=== PATIENT | male | born 1960 | race Caucasian/White ===

== ENCOUNTER 2016-12-14 18:02 | Emergency (ER) | payer BC ==
--- NOTE | 2016-12-14 18:10 | ED.PDOC ---
History of Present Illness - General Chief Complaint: General Stated Complaint: fever /headache Time Seen by Provider: 12/14/16 18:09 Source: patient Exam Limitations: no limitations - History of Present Illness Initial Comments: Cody Puckett 56 y/o male stated that he had onset of frontal head ache non radiating since yesterday which had been constant felt nauseated ,w/photophobia and phonopsia.Stated had history of migraine headaches 20 years ago but it gradually got better.5 days ago had nausea vomiting and diarrhea which got better.Denies ill contact or outdoor camping Timing/Duration: 24 hours Severity: moderate Improving Factors: nothing Worsening Factors: nothing Associated Symptoms: other - see hpi Allergies/Adverse Reactions: Allergies NO KNOWN ALLERGY Allergy (Verified 12/14/16 18:18) Home Medications: Ambulatory Orders Aspirin [Goodsense Aspirin] 325 mg PO DAILY 12/09/13 Esomeprazole Magnesium [Nexium] 40 mg PO DAILY 12/09/13 Metoprolol Succinate [Toprol XL] 50 mg PO DAILY 12/09/13 Review of Systems - Review of Systems Constitutional: States: see HPI, fever EENTM: States: no symptoms reported Respiratory: States: no symptoms reported Cardiology: States: no symptoms reported Gastrointestinal/Abdominal: States: no symptoms reported Genitourinary: States: no symptoms reported Neurological: States: see HPI Endocrine: States: no symptoms reported Hematologic/Lymphatic: States: no symptoms reported Past Medical History (General) - Patient Medical History Hx Stroke: No Hx Congestive Heart Failure: No Hx Hypertension: Yes Hx Diabetes: No Surgical History: no surgical history - Social History Hx Tobacco Use: No Hx Chewing Tobacco Use: Yes Family Medical History - Family History Father Living Status: Hx Cardiac Disease: Yes Age of Onset (years of age): 80 Physical Exam - Physical Exam General Appearance: Alert, No apparent distress Eye Exam: bilateral normal Ears, Nose, Throat: hearing grossly normal, normal ENT inspection, normal pharynx Neck: non-tender, full range of motion, supple, other - no meningeal signs Respiratory: chest non-tender, lungs clear, normal breath sounds Cardiovascular/Chest: normal peripheral pulses, regular rate, rhythm, no murmur Peripheral Pulses: radial,right: 2+, radial,left: 2+ Gastrointestinal/Abdominal: normal bowel sounds, non tender, soft, no organomegaly Back Exam: no CVA tenderness, no vertebral tenderness Extremity: non-tender, normal inspection Neurologic: alert, normal mood/affect, oriented x 3 Skin Exam: normal color, warm/dry Lymphatic: no adenopathy Progress - Progress Progress: 12/14/16 21:37 Vital Signs - 8 hr 12/14/16 12/14/16 12/14/16 18:07 18:18 20:34 Temperature 102.0 F H 102.3 F H Pulse Rate [ 107 H 92 H pulse ox] Respiratory 20 20 18 Rate Blood Pressure 143/82 115/74 [Left Arm] O2 Sat by Pulse 96 Oximetry 12/14/16 20:36 Temperature 102.3 F H Pulse Rate [ pulse ox] Respiratory Rate Blood Pressure [Left Arm] O2 Sat by Pulse Oximetry flu swab-negative A/B Laboratory Tests 12/14/16 12/14/16 12/14/16 18:30 18:50 18:50 WBC 10.5 RBC 5.53 Hgb 16.1 Hct 46.3 MCV 83.9 MCH 29.2 MCHC 34.8 RDW 14.0 Plt Count 132 MPV 8.2 Absolute Neuts (auto) 8.30 H Absolute Lymphs (auto) 1.40 Absolute Monos (auto) 0.80 Absolute Eos (auto) 0.00 Absolute Basos (auto) 0.00 Neutrophils % 78.5 H Lymphocytes % 13.4 L Monocytes % 7.3 Eosinophils % 0.5 L Basophils % 0.3 Sodium 130 L Potassium 4.0 Chloride 98 L Carbon Dioxide 24 Anion Gap 12.0 BUN 14 Creatinine 1.10 BUN/Creatinine Ratio 12.7 Random Glucose 110 H Serum Osmolality 261.9 L Calcium 8.6 Total Bilirubin 1.3 H AST 35 ALT 41 Alkaline Phosphatase 61 Serum Total Protein 7.5 Albumin 4.1 Globulin 3.4 Albumin/Globulin Ratio 1.2 Lipase 23 Urine Color Yellow Urine Appearance Clear Urine pH 5.5 Ur Specific [place] 1.025 Urine Protein Negative Urine Glucose (UA) Negative Urine Ketones Negative Urine Blood Small H Urine Nitrite Negative Urine Bilirubin Negative Urine Urobilinogen 0.2 Ur Leukocyte Esterase Negative Urine RBC 1-3 Urine WBC 0-1 Ur Epithelial Cells 0 Amorphous Sediment Trace Urine Bacteria Rare Urine Mucus Small - Results/Orders Results/Orders: Discuss blood test result and head ct findings with patient;initially told patient that if white count is elevated need to do spinal tap but turned out white blood result is within normal range Departure - Departure Clinical Impression: Hyponatremia, Viral illness Headache Qualifiers: Headache type: unspecified Headache chronicity pattern: unspecified pattern Intractability: not intractable Qualified Code(s): R51 - Headache Fever Qualifiers: Fever type: unspecified Qualified Code(s): R50.9 - Fever, unspecified Time of Disposition: 21:49 Disposition: Discharge to Home or Self Care Departure Forms: ED Discharge - Pt. Copy, Patient Portal Self Enrollment Instructions: DI for Headache Referrals: Barry Zepeda MD [Primary Care Provider] - 1-2 Weeks Home Medications: Ambulatory Orders Aspirin [Goodsense Aspirin] 325 mg PO DAILY 12/09/13 Esomeprazole Magnesium [Nexium] 40 mg PO DAILY 12/09/13 Metoprolol Succinate [Toprol XL] 50 mg PO DAILY 12/09/13 Additional Instructions: FOLLOW UP with primary md in AM 12/15/2016 call for appointment;Return to emergency room as needed
[2016-12-14 18:25] VITALS: O2SAT 96
[2016-12-14] MEDS ORDERED: LACTATED RINGERS 1,000 ML IVS ONE (19:10)
--- NOTE | 2016-12-14 20:23 | CT ---
EXAM DATE: 12/14/2016 7:26 PM CDT. PROCEDURE: CT HEAD WITHOUT IV CONTRAST. INDICATION: HEADACHE / FEVER. COMPARISON: CT head 2009 TECHNIQUE: Axial CT images of the head were acquired without intravenous contrast. This exam was performed according to our departmental dose-optimization program which includes use of Automated Exposure Control, adjustment of the mA and/or kV according to patient size and/or use of iterative reconstruction technique. FINDINGS: No acute intracranial hemorrhage. Randall white matter differentiation is preserved. No mass effect or midline shift. There is ventriculomegaly involving the lateral third ventricles with relative sparing of the fourth ventricle. Unremarkable orbits. Partial opacification of several ethmoid air cells. Mastoid air cells are clear. Intact calvarium. IMPRESSION: No acute intracranial abnormality. Ventriculomegaly of the lateral and third ventricles with relative sparing of the fourth ventricle stable since 2009. 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 Electronically signed by: Kyle Gudino MD 12/14/2016 8:22 PM CDT
[2016-12-14] MEDS ORDERED: HYDROCOD/APAP 10/325 (ER DISP) # 3 tablets PO ONE (21:42)
[2016-12-14] MEDS ORDERED: MORPHINE SULFATE INJ 10 MG/ML VIAL IV ONE (21:43)
[2016-12-14] MEDS ORDERED: PROMETHAZINE HCL INJ 25 MG/ML VIAL IM ONE (21:43)
[2016-12-14] MEDS ORDERED: ACETAMINOPHEN 500 MG TAB PO ONE (21:44)
[2016-12-14 22:11] VITALS: BP 122/78; TEMP 101.8
== END 2016-12-14 22:10 | disposition home or self-care (01) ==
LOC: ER 18:02
DX: E87.1 Hypo-osmolality and hyponatremia (principal); R51 Headache; B34.9 Viral infection, unspecified; I10 Essential (primary) hypertension; Z79.82 Long term (current) use of aspirin
CPT/HCPCS: 36415; 70450; 80053; 81001; 83690; 85025; 86788; 86789; 87502; 93005; J2270; J2550; J7120

== ENCOUNTER 2017-04-24 07:32 | Emergency (ER) | payer BC ==
[2017-04-24] MEDS ORDERED: ONDANSETRON INJ 4 MG/2 ML VIAL IV ONE (07:54)
[2017-04-24] MEDS ORDERED: SODIUM CHLORIDE 0.9% 1000ML 1,000 ML IVS ONE (07:54)
--- NOTE | 2017-04-24 07:57 | ED.PDOC ---
History of Present Illness - General Chief Complaint: Fever Stated Complaint: Fever, H/A, vomiting, cough Time Seen by Provider: 04/24/17 07:47 Source: patient, RN notes reviewed, Vital Signs reviewed - History of Present Illness Initial Comments: ONSET ABOUT THREE DAYS AGO, FEVER, MALAISE, VOMITING , DIARRHEA AND A PRODUCTIVE COUGH. 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 Associated Symptoms: cough, headache, muscle aches, nausea/vomiting, shortness of breath, sore throat Review of Systems - Review of Systems Constitutional: States: fever, malaise, weakness EENTM: States: nose congestion, throat pain Respiratory: States: cough, short of breath Cardiology: States: palpitations Gastrointestinal/Abdominal: States: abdominal pain, diarrhea, nausea, vomiting Genitourinary: States: no symptoms reported Musculoskeletal: States: joint swelling, muscle pain Skin: States: no symptoms reported Neurological: States: anxiety, headache Endocrine: States: no symptoms reported Hematologic/Lymphatic: States: no symptoms reported All other Systems: Reviewed and Negative Past Medical History (General) - Patient Medical History Hx Stroke: No Hx Congestive Heart Failure: No Hx Hypertension: Yes Hx Diabetes: No Hx Gastroesophageal Reflux: Yes Hx Renal Disease: Yes Surgical History: other - Vaccination History Hx Influenza Vaccination: Yes - 2017 Hx Pneumococcal Vaccination: No - Social History Hx Tobacco Use: No Hx Chewing Tobacco Use: Yes Hx Alcohol Use: No Hx Substance Use: No Hx Substance Use Treatment: No Hx Depression: No Family Medical History - Family History Father Living Status: Hx Cardiac Disease: Yes Age of Onset (years of age): 80 Physical Exam - Physical Exam General Appearance: Alert, Ill Appearing, Well Developed, Well Groomed, Well Nourished Eye Exam: bilateral normal ENT Exam: pharynx normal, nasal congestion, other - ORAL MUCOSA IS DRY Neck: non-tender, full range of motion, supple Respiratory: normal breath sounds, decreased breath sounds, rhonchi Cardiovascular/Chest: normal peripheral pulses, regular rate, rhythm, no edema, no gallop, no JVD, no murmur Gastrointestinal/Abdominal: normal bowel sounds, non tender, soft, no organomegaly, no pulsatile mass Extremity: normal range of motion, non-tender Neurologic: no motor/sensory deficits, normal mood/affect, oriented x 3 Skin Exam: normal color Lymphatic: no adenopathy Progress - Results/Orders Results/Orders: LAB AND X-RAYS ARE REPORTED. CXR WITH A LLL PNEUMONIA. Departure - Departure Clinical Impression: Pneumonia Qualifiers: Pneumonia type: due to unspecified organism Laterality: left Lung location: lower lobe of lung Qualified Code(s): J18.1 - Lobar pneumonia, unspecified organism Time of Disposition: 09:40 Disposition: Discharge to Home or Self Care Condition: Good Departure Forms: ED Discharge - Pt. Copy, Patient Portal Self Enrollment Instructions: Pneumonia-Adult Diet: resume usual diet Activity: increase activity as tolerated Referrals: Barry Zepeda MD [Primary Care Provider] - 1-2 Weeks Prescriptions: Benzonatate Perles [Tessalon Perles] 200 mg PO Q8HRS #15 cap levoFLOXacin 500MG IV [Levaquin 500MG IV] 500 mg IVPB DAILY #10 bag Home Medications: Ambulatory Orders Aspirin [Goodsense Aspirin] 325 mg PO DAILY 12/09/13 Esomeprazole Magnesium [Nexium] 40 mg PO DAILY 12/09/13 Metoprolol Succinate [Toprol XL] 50 mg PO DAILY 12/09/13 Benzonatate Perles [Tessalon Perles] 200 mg PO Q8HRS #15 cap 04/24/17 levoFLOXacin 500MG IV [Levaquin 500MG IV] 500 mg IVPB DAILY #10 bag 04/24/17
--- NOTE | 2017-04-24 08:16 | RAD ---
EXAM DESCRIPTION: Chest,1 View CLINICAL HISTORY: FEVER AND COUGH COMPARISON: None available FINDINGS: The cardiomediastinal silhouette is unremarkable. Coarse interstitial prominence is noted in the left lung base. No airspace consolidation or pleural effusion. The lungs are not hyperinflated. There is no pneumothorax or acute fracture. IMPRESSION: Abnormal appearance of the left lung base concerning for developing pneumonia. Electronically signed by: Thiago Colon MD 04/24/2017 8:15 AM GRAIN PACKER
[2017-04-24] MEDS ORDERED: cefTRIAXone SODIUM 1 GM in SODIUM CHL 0.9% 50ML MIN-BAG+ 50 ML IVPB ONE (08:47)
[2017-04-24] MEDS ORDERED: SODIUM CHL 0.9% 50ML MIN-BAG+ 50 ML IVPB ONE (08:53)
[2017-04-24] MEDS ORDERED: cefTRIAXone SODIUM 1 GM VIAL ONE (08:53)
[2017-04-24 09:26] VITALS: BP 115/71; O2SAT 96
[2017-04-24] MEDS ORDERED: IBUPROFEN 200 MG TAB PO ONE (09:27)
[2017-04-24 10:09] VITALS: TEMP 101.9
== END 2017-04-24 10:08 | disposition home or self-care (01) ==
LOC: ER 07:32
DX: J18.1 Lobar pneumonia, unspecified organism (principal); K21.9 Gastro-esophageal reflux disease without esophagitis; I10 Essential (primary) hypertension; N28.9 Disorder of kidney and ureter, unspecified
CPT/HCPCS: 36415; 71045; 80053; 85025; J0696; J2405; J7030; J7050

== ENCOUNTER → 2018-02-11 | Outpatient (CLI) | payer BC | LOC: GMAE 11:21 | PROVIDERS: ATTEND Family Medicine | DX: Z00.00 Encounter for general adult medical examination without abnormal findings (principal) ==

== ENCOUNTER 2018-04-07 05:48 | Day surgery (SDC) | payer BC ==
[2018-04-07] MEDS ORDERED: LIDOCAINE 1% 10 ML VIAL INJ ONE (07:00)
[2018-04-07] MEDS ORDERED: PROPOFOL 200 MG/20 ML VIAL IV ONE (07:00)
[2018-04-07] MEDS ORDERED: LACTATED RINGERS 1,000 ML ONE (08:14)
--- NOTE | 2018-04-07 14:10 | OP ---
DATE OF PROCEDURE: 04/07/18 PREPROCEDURE DIAGNOSIS: 1. Colorectal cancer screening. POSTPROCEDURE DIAGNOSIS: 1. Rectal erythema. 2. Large, non-bleeding internal hemorrhoids. 3. Scattered erosions and minimal inflammation in the terminal ileum. 4. Mild sigmoid diverticulosis. PROCEDURE: 1. Colonoscopy. SURGEON: Diego Yip MD COMPLICATIONS: No immediate complications. SEDATION: The patient was sedated via IV propofol by the Anesthesia Department. CONSENT: Prior to the procedure, risks, benefits and alternatives to the therapy were discussed with the patient. The risks included bleeding, infection, perforation and . The patient agreed to the procedure and signed a consent. PREPROCEDURE ANESTHESIA ASSESSMENT: An examination revealed no contraindication to sedation. Airway examination demonstrated a Mallampati class type 2, ASA grade assessment type 2. Throughout the procedure, the patient's vital signs were closely monitored. PROCEDURE: The patient was placed in the left lateral decubitus position and a rectal examination was performed. The rectal examination was within normal limits. The Olympus colonoscope was passed in the anus, rectum, traversing the colon to the level of the cecum as identified by the appendiceal orifice and the ileocecal valve. Additionally, the endoscope was advanced 20 cm into the terminal ileum. The scope was retracted and the mucosa was visualized. The entirety of the exam was performed under direct visualization. Retroflexion was performed in the rectum. Preparation quality was good. The withdrawal time was greater than 6 minutes. The patient tolerated the procedure well. FINDINGS: 1. Scattered small erosions and minimal erythema found in the terminal ileum. Biopsied with cold forceps. 2. Mild diverticulosis was found in the sigmoid colon. 3. Mild erythema was found in the rectum. Biopsies with cold forceps were obtained to rule out inflammatory bowel disease. 4. Non-bleeding, large internal hemorrhoids found on retroflexion in the rectum. RECOMMENDATION: 1. Return the patient home. 2. Resume previous diet. 3. Followup pathology results. 4. Repeat colonoscopy in the next 10 years for screening purposes. 5. Primary care provider may check FOBT/Cologuard in the subsequent 3 years. 6. Return to my office in the following 2 weeks. 7. These were discussed with the patient and family members and all questions were answered. #[id number] [facility]
[2018-04-07 14:52] VITALS: BP 108/64; TEMP 97.4; O2SAT 96
== END 2018-04-07 14:40 | disposition home or self-care (01) ==
LOC: AMB 05:48
PROVIDERS: ATTEND Internal Medicine Gastroenterology
DX: Z12.11 Encounter for screening for malignant neoplasm of colon (principal); K63.89 Other specified diseases of intestine; K62.89 Other specified diseases of anus and rectum; K57.30 Diverticulosis of large intestine without perforation or abscess without bleeding; K64.8 Other hemorrhoids; I10 Essential (primary) hypertension; K21.9 Gastro-esophageal reflux disease without esophagitis; E66.01 Morbid (severe) obesity due to excess calories; F17.220 Nicotine dependence, chewing tobacco, uncomplicated; Z79.82 Long term (current) use of aspirin; Z79.899 Other long term (current) drug therapy
CPT/HCPCS: 00812; 45380; J3490; J7120

== ENCOUNTER → 2018-09-27 | Outpatient (CLI) | payer BC ==
--- NOTE | 2018-09-27 13:54 | MRI ---
MRI left wrist without contrast INDICATION: Wrist pain medial side pain with motion x4 weeks TECHNIQUE: Noncontrast MR imaging left wrist standard protocol FINDINGS: Ulna minus variance with prominent osteoarthrosis of the distal radioulnar joint. Degenerative TFC. No evidence of carpal instability. Severe osteoarthrosis basal joint of thumb with intra-articular bodies. Prominent osteophyte and body in the distal radioulnar joint. Scattered degenerative carpal cysts including small ganglion near the trapezium. Central partial tear TFC near the ulnar attachment. Moderate STT compartment osteoarthrosis. Multiple dilated venous structures in the subcutaneous tissues likely small venous varicosities. Lateral subluxation extensor carpi ulnaris with interstitial tendinosis and mild tenosynovitis. No flexor rupture. Median nerve is unremarkable. 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
== END ==
LOC: MRI 10:55
PROVIDERS: ATTEND Family Medicine
DX: M19.032 Primary osteoarthritis, left wrist (principal); M21.832 Other specified acquired deformities of left forearm; S63.592A Other specified sprain of left wrist, initial encounter

== ENCOUNTER 2019-03-09 11:17 | Emergency (ER) | payer BC ==
[2019-03-09] MEDS ORDERED: ALUM & MAG HYDROX-SIMETHICONE 30 ML UD ONE (11:39)
[2019-03-09] MEDS ORDERED: SODIUM CHLORIDE 0.9% 50ML 50 ML ONE (11:39)
[2019-03-09] MEDS ORDERED: LIDOCAINE HCL 2% (MOUTH-THROAT) 15 ML UD ONE (11:39)
[2019-03-09] MEDS ORDERED: PROMETHAZINE HCL INJ 25 MG/ML VIAL ONE (11:39)
[2019-03-09] MEDS: PROMETHAZINE HCL INJ 25 MG in SODIUM CHLORIDE 0.9% 50ML 50 ML IVPB ONE (11:51)
[2019-03-09] MEDS: SODIUM CHLORIDE 0.9% 1000ML 1,000 ML IVS ONE (11:51)
[2019-03-09] MEDS: ALUM & MAG HYDROX-SIMETHICONE 30 ML, LIDOCAINE VISCOUS 2% 15 ML PO ONE ×2 (11:55)
--- NOTE | 2019-03-09 12:23 | RAD ---
EXAM: Abdomen Series CLINICAL INDICATION: Nausea, vomiting COMPARISON: There is no previous study for comparison. FINDINGS: A single view of the chest reveals the heart size is normal. The pulmonary vessels are unremarkable. The lungs are clear. There is no evidence of free air under the hemidiaphragms. Three views of the abdomen were obtained. There is a nonspecific bowel gas pattern with no radiographic evidence of bowel obstruction. There are no dilated loops of small bowel. There is no evidence of pneumoperitoneum or pathologic calcifications. IMPRESSION: No evidence of an acute intraabdominal process. Electronically signed by: Neal Kong MD 03/09/2019 12:21 PM FISH TECHNOLOGIST
[2019-03-09] MEDS: SUCRALFATE 1 GM/10 ML 1 GM UD PO ONE (13:07)
[2019-03-09] MEDS: MAGNESIUM HYDROXIDE 30 ML UD PO ONE (13:40)
--- NOTE | 2019-03-09 13:42 | ED.PDOC ---
History of Present Illness - General Chief Complaint: Abdominal Pain Stated Complaint: abdominal pain,chest pain,vomiting Time Seen by Provider: 03/09/19 11:27 Source: patient Exam Limitations: no limitations - History of Present Illness Initial Comments: the patient is a 58-year-old male presenting to the emergency room secondary to 2-3 days of nausea and vomiting. He would typically throw something up about 20 or 30 minutes after he ate it. He does have a long- standing history of gastritis, stomach ulcers and reflux issues. He reports that the Pepto-Bismol helps more than anything else but it is causing him to be constipated. No diffuse abdominal pain. He does have chest pain when he is vomiting. No chest pain otherwise. No syncope. Questionable fevers recently. No rebound or peritoneal signs. No evidence of any GI bleed to this point. Timing/Duration: other - 2 days Severity: moderate Improving Factors: nothing Worsening Factors: nothing Associated Symptoms: loss of appetite, malaise, nausea/vomiting Allergies/Adverse Reactions: Allergies NO KNOWN ALLERGY Allergy (Verified 04/06/18 11:35) Home Medications: Ambulatory Orders Aspirin [Goodsense Aspirin] 325 mg PO DAILY 12/09/13 Esomeprazole Magnesium [Nexium] 20 mg PO DAILY 12/09/13 Metoprolol Succinate [Toprol XL] 50 mg PO DAILY 12/09/13 Ondansetron Odt [Zofran ODT] 4 mg PO Q8HR PRN #5 tab 03/09/19 Sucralfate Tab [Carafate Tab] 1 gm PO QID #120 tab 03/09/19 Review of Systems - Review of Systems Constitutional: States: chills, malaise, weakness EENTM: States: no symptoms reported Respiratory: States: no symptoms reported Cardiology: States: chest pain - only with vomiting Gastrointestinal/Abdominal: States: abdominal pain - epigastric, constipation - due to Pepto-Bismol, nausea, vomiting Genitourinary: States: no symptoms reported Musculoskeletal: States: no symptoms reported Skin: States: no symptoms reported Neurological: States: no symptoms reported Endocrine: States: no symptoms reported All other Systems: No Change from Baseline Past Medical History (General) - Patient Medical History Hx Stroke: No Hx Congestive Heart Failure: No Hx Hypertension: Yes Hx Diabetes: No Hx Gastroesophageal Reflux: Yes Hx Renal Disease: Yes Hx MRSA: No - Vaccination History Hx Influenza Vaccination: Yes Hx Pneumococcal Vaccination: Yes - Social History Hx Tobacco Use: No Hx Chewing Tobacco Use: Yes Hx Alcohol Use: No Hx Substance Use: No Hx Substance Use Treatment: No Hx Depression: No Family Medical History - Family History Father Living Status: Hx Cardiac Disease: Yes Age of Onset (years of age): 80 Physical Exam - Physical Exam General Appearance: Alert, No apparent distress Eye Exam: bilateral normal Ears, Nose, Throat: hearing grossly normal, normal ENT inspection Neck: full range of motion, supple Respiratory: lungs clear, normal breath sounds, no respiratory distress, no accessory muscle use Cardiovascular/Chest: normal peripheral pulses, regular rate, rhythm, no edema Peripheral Pulses: radial,right: 2+, radial,left: 2+ Gastrointestinal/Abdominal: non tender - mild epigastric discomfort palpation., soft Rectal Exam: deferred Back Exam: no CVA tenderness, no vertebral tenderness Extremity: non-tender, normal inspection, no pedal edema, normal capillary refill 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 He has responded well to medications here. He will be written for Zofran to control any nausea or vomiting. He will also be written for Carafate to take 4 times daily for the next couple of weeks. He needs to increase his Nexium to twice daily. Additionally he can [employer]et [employer] some liquid Maalox or Mylanta to use as needed. He needs to discontinue the Pepto-Bismol, as well as this may be helping with the gastritis, it is constipating him. He needs to maintain a liquid diet for the next few days. He needs to follow back up with his primary care doctor early next week. Obviously if he is continuing to have symptoms then he may require additional testing. ER warnings were given. david wilson [phone] - Results/Orders Results/Orders: acute abdominal series appears benign. See reports for details. 03/09/19 11:45 EKG STATEKG shows normal sinus rhythm at 76 beats a minute. Normal QT interval. Normal axis. Normal R-wave progression. No definitive evidence of ST segment elevation or significant T-wave pathology. Laboratory Results - last 24 hr 03/09/19 03/09/19 03/09/19 11:35 11:35 11:35 WBC 5.4 RBC 5.27 Hgb 15.6 Hct 45.5 MCV 86.4 MCH 29.6 MCHC 34.2 RDW 13.9 Plt Count 108 L MPV 7.8 Absolute Neuts (auto) 3.70 Absolute Lymphs (auto) 1.30 Absolute Monos (auto) 0.40 Absolute Eos (auto) 0.00 Absolute Basos (auto) 0.00 Neutrophils % 67.6 Lymphocytes % 23.4 Monocytes % 7.8 Eosinophils % 0.6 L Basophils % 0.6 Sodium 136 Potassium 3.9 Chloride 104 Carbon Dioxide 23 Anion Gap 12.9 BUN 12 Creatinine 0.86 BUN/Creatinine Ratio 14.0 Random Glucose 163 H Serum Osmolality 275.3 Lactic Acid Calcium 8.4 Magnesium 1.9 Total Bilirubin 1.1 H AST 54 H ALT 57 Alkaline Phosphatase 95 Creatine Kinase 180 H CK-MB (CK-2) 1.2 CK-MB (CK-2) % Not Reportable Troponin I < 0.02 Serum Total Protein 7.4 Albumin 3.8 Globulin 3.6 H Albumin/Globulin Ratio 1.1 Amylase 61 Lipase 35 Urine Color Urine Appearance Urine pH Ur Specific [place] Urine Protein Urine Glucose (UA) Urine Ketones Urine Blood Urine Nitrite Urine Bilirubin Urine Urobilinogen Ur Leukocyte Esterase Urine RBC Urine WBC Ur Epithelial Cells Urine Bacteria 03/09/19 03/09/19 11:35 13:00 WBC RBC Hgb Hct MCV MCH MCHC RDW Plt Count MPV Absolute Neuts (auto) Absolute Lymphs (auto) Absolute Monos (auto) Absolute Eos (auto) Absolute Basos (auto) Neutrophils % Lymphocytes % Monocytes % Eosinophils % Basophils % Sodium Potassium Chloride Carbon Dioxide Anion Gap BUN Creatinine BUN/Creatinine Ratio Random Glucose Serum Osmolality Lactic Acid 1.8 Calcium Magnesium Total Bilirubin AST ALT Alkaline Phosphatase Creatine Kinase CK-MB (CK-2) CK-MB (CK-2) % Troponin I Serum Total Protein Albumin Globulin Albumin/Globulin Ratio Amylase Lipase Urine Color Yellow Urine Appearance Clear Urine pH 7.0 Ur Specific [place] 1.015 Urine Protein Negative Urine Glucose (UA) Negative Urine Ketones Negative Urine Blood Negative Urine Nitrite Negative Urine Bilirubin Negative Urine Urobilinogen 2.0 H Ur Leukocyte Esterase Negative Urine RBC 0 Urine WBC 0 Ur Epithelial Cells 0 Urine Bacteria 0 Departure - Departure Clinical Impression: Dehydration Gastritis Qualifiers: Gastritis type: unspecified gastritis Chronicity: acute Gastritis bleeding: without bleeding Qualified Code(s): K29.00 - Acute gastritis without bleeding Disposition: Discharge to Home or Self Care Condition: Fair Departure Forms: ED Discharge - Pt. Copy, Patient Portal Self Enrollment Instructions: Gastritis (DC) Diet: bland diet Activity: increase activity as tolerated Referrals: RACQUEL VALDES MD [Primary Care Provider] - 1-2 Weeks Prescriptions: Ondansetron Odt [Zofran ODT] 4 mg PO Q8HR PRN #5 tab PRN Reason: Nausea--Moderate Sucralfate Tab [Carafate Tab] 1 gm PO QID #120 tab Home Medications: Ambulatory Orders Aspirin [Goodsense Aspirin] 325 mg PO DAILY 12/09/13 Esomeprazole Magnesium [Nexium] 20 mg PO DAILY 12/09/13 Metoprolol Succinate [Toprol XL] 50 mg PO DAILY 12/09/13 Ondansetron Odt [Zofran ODT] 4 mg PO Q8HR PRN #5 tab 03/09/19 Sucralfate Tab [Carafate Tab] 1 gm PO QID #120 tab 03/09/19 Additional Instructions: the patient's a 58-year-old male presenting to the emergency room with what appears to be a significant acute gastritis. He has responded well to medications here. He will be written for Zofran to control any nausea or vomiting. He will also be written for Carafate to take 4 times daily for the next couple of weeks. He needs to increase his Nexium to twice daily. Additionally he can picket [employer] some liquid Maalox or Mylanta to use as needed. He needs to discontinue the Pepto-Bismol, as well as this may be helping with the gastritis, it is constipating him. He needs to maintain a liquid diet for the next few days. He needs to follow back up with his primary care doctor early next week. Obviously if he is continuing to have symptoms then he may require additional testing. ER warnings were given.
[2019-03-09 14:07] VITALS: BP 131/78; TEMP 100.9; O2SAT 94
== END 2019-03-09 14:07 | disposition home or self-care (01) ==
LOC: ER 11:17
DX: K29.00 Acute gastritis without bleeding (principal); E86.0 Dehydration; I12.9 Hypertensive chronic kidney disease with stage 1 through stage 4 chronic kidney disease, or unspecified chronic kidney disease; N18.9 Chronic kidney disease, unspecified; K21.9 Gastro-esophageal reflux disease without esophagitis; Z87.11 Personal history of peptic ulcer disease; Z87.891 Personal history of nicotine dependence; Z79.82 Long term (current) use of aspirin; Z79.899 Other long term (current) drug therapy
CPT/HCPCS: 74019; 80053; 81001; 82150; 82550; 82553; 83605; 83690; 83735; 84484; 85025; 87502; 93005; A4216; J2550; J7030

== ENCOUNTER → 2019-04-07 | Outpatient (CLI) | payer BC | LOC: GMAE 10:36 | PROVIDERS: ATTEND Family Medicine | DX: Z00.00 Encounter for general adult medical examination without abnormal findings (principal) ==